=== PATIENT | male | born 1945 | race Caucasian/White ===

== ENCOUNTER 2016-12-01 12:42 | Day surgery (SDC) | payer OTHER, MEDICARE ==
--- NOTE | ~2016-12-01 | OP ---
Record Of Operation [facility] [address] [place]. [address] NAME: GOLDEN SHARIF : 41 STATUS : [facility]#: [id number] AGE: 71 ADM/REG DATE : 12/01/16 MR#: [id number] REPORT SERV DATE: 12/01/16 DICTATED BY: KAMILA SANCHEZ DATE: 12/01/16 REPORT STATUS : Draft TRANSCRIBED BY: MODL DATE: 12/01/16 DATE OF PROCEDURE: 12/01/2016 PREOPERATIVE DIAGNOSES: Gross hematuria, left ureteral stones. POSTOPERATIVE DIAGNOSES: Gross hematuria, left ureteral stones. PROCEDURE: Cystoscopy, left retrograde pyelogram, left rigid ureteroscopy, laser ablation and basket extraction of left ureteral stone, left flexible ureteropyeloscopy, laser ablation of left renal stones, placement of left ureteral stent, placement of Garcia catheter. SURGEON: Kamila Sanchez M.D. ANESTHESIA: General. SPECIMENS: Left ureteral stone for stone composition analysis. DRAINS: A 6 variable length double-J contour stent without a string, 22-Nicaraguan coude catheter to bag drainage to be removed in phase two recovery. ESTIMATED BLOOD LOSS: Less than 50 mL. CULTURES: None. COMPLICATIONS: We had great difficulty placing the stent. Upon the third try, a false passage was created by lifting a flap at the ureteral orifice. This was bypassed with the rigid ureteroscope and a stent was placed across the injury. DISPOSITION: Extubated to recovery room. HISTORY: This is a 71-year-old gentleman, who presented to my office yesterday with the above-stated problems who presents for the above-stated procedure. He is taking aspirin. PROCEDURE IN DETAIL: After consent was obtained, the patient was taken to the operating room and placed on the operative table in a supine position. General anesthetic was induced. The patient was then placed in a dorsal lithotomy position. His perineum was prepped and draped in usual sterile fashion. Examination under anesthesia revealed normal external genitalia. Cystourethroscopy was performed with a 30- and 70-degree lens. 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 His prostate gland was friable and easily bleeds, but was not bleeding upon insertion of the scope. He had no evidence of any tumor stones or foreign body seen in his bladder. He does had hematuria with efflux from his left ureteral orifice only. KUB on the table showed phleboliths in his left lower pelvis. No other abnormal calcifications were noted regarding his left collecting system. Left retrograde pyelogram was performed, which showed a flattening of the ureter over the vessels, otherwise normal caliber collecting system. We Record Of Operation [facility] [address] [place]. [address] NAME: GOLDEN SHARIF : 41 STATUS : [facility]#: [id number] AGE: 71 ADM/REG DATE : 12/01/16 MR#: [id number] REPORT SERV DATE: 12/01/16 DICTATED BY: KAMILA SANCHEZ DATE: 12/01/16 REPORT STATUS : Draft TRANSCRIBED BY: NOEL DATE: 12/01/16 had difficulty passing the wire over the vessels. We had to use a 0.038 angled Glidewire. We were then able to pass the wire up into the kidney. We then passed the open-ended over the angled Glidewire into the kidney, and the Glidewire was exchanged for the 0.038 Bentson wire. The open-ended was then removed. The 4 cm ureteral dilating balloon was used to dilate the ureteral orifice. The bladder was then drained. Scope and sheaths were removed. The safety wire was clamped to the drapes. Rigid ureteroscopy was performed up to the level of the vessels. This was where we encountered a ureteral stone. The 200 laser fiber was used to break this up into several small pieces. The filiform basket was used to remove one of these pieces, which was sent to Pathology for composition analysis. We then re-scoped the patient's ureter all the way up to the kidney. We could see the second stone had washed up into the kidney, but we could not engage this with the basket. We then backed down the ureter and another small piece of stone was noted. We were able to wash this using the basket down into the patient's bladder. No other significant stones or abnormalities were noted. At that time, the bladder was drained. The scope and sheath were removed. A Rey catheter was used to pass a second wire into the kidney. The safety wire was clamped to the drapes. The ureteral access sheath was passed over the working wire to the mid ureter. The inner core was removed. The flexible ureteroscope was passed over the working wire into the kidney and the working wire was removed. A retrograde pyelogram was performed, and all calices were evaluated. The stone was found in a mid pole calyx. A laser was used to break this up into very small pieces. We then evaluated all calices again. We found no significant stone fragments. We then backed down the ureter and found no significant abnormalities. The safety wire was backed through the cystoscope and the 6 variable length was passed over the wire into the kidney, but it would not curl appropriately in the kidney. We used the graspers to try to adjust this from the bladder standpoint, but it had a very long straight portion and then curled in what appeared to be the proximal ureter. We could not get this to just appropriately and ultimately had to remove the stent out the end of the urethral meatus and passed the wire back up the stent. The stent was removed and the wire was backed through the cystoscope. The open-ended was passed over the wire. A retrograde pyelogram was performed and wire was passed up into the kidney. The patient's prostate and bladder neck were bleeding some now from his aspirin use and manipulation of the cystoscope in this area throughout the case. This made it very hard to see the ureteral orifice while trying to pass the stent. Clot was forming in this dependent area. With passing the stent the second time, the wire was allowed to curl in the bladder, so the stent and wire had to be completely removed. We went to shoot a retrograde pyelogram. It was noted that a false passage and flap had been raised of the distal portion of the ureteral orifice. The rigid ureteroscope was then passed and a wire was directly passed through the rigid ureteroscope up the ureter and a retrograde pyelogram was performed through the rigid ureteroscope showing that we were in the ureter and the wire was passed up the ureter into the kidney. The rigid ureteroscope was removed. The safety wire was backed through the cystoscope and the contour stent was passed with a good curl seen in the renal pelvis and in the bladder. It was seen to be draining. The bladder was drained and then refilled. They were continued to be oozing at the bladder neck. So, it was decided at that time to leave a catheter at least until phase two to place pressure on the bladder neck and decrease the bleeding. A 22 Nicaraguan coude catheter was passed and 15 mL were placed in the balloon. This was seated at the bladder neck. The patient was then awakened from his anesthetic, extubated, and taken Record Of Operation [address] [place]. [address] NAME: GOLDEN SHARIF : 41 STATUS : [facility]#: [id number] AGE: 71 ADM/REG DATE : 12/01/16 MR#: [id number] REPORT SERV DATE: 12/01/16 DICTATED BY: KAMILA SANCHEZ DATE: 12/01/16 REPORT STATUS : Draft TRANSCRIBED BY: MODBaldo DATE: 12/01/16 to recovery room in good condition. Plan will be to have the catheter removed in phase two. He will return in three weeks for a KUB, a cystoscopy, and stent removal. All of his postoperative prescriptions were given to him at his office visit yesterday. CLARK/NOEL Kamila Sanchez M.D. / [id number] CC: Dorcas Bliss M.D.
[~2016-12-01 12:42] MED LIST: ASA5GR; CRESTOR40 MG PO; GLUCPH PO; L20 PO; LEVOTHYROXIN175 MCG PO; NEUR300 PO; NORV25 PO; PRILO PO; PROSCAR5 PO; TOPROL XL200 MG PO; UROXATRAL PO; VITD PO; ZOL100 PO
[2016-12-01 13:00] LABS: BASOPHILS 0.7 %; BASOPHILS ABSOLUTE 0.06 10/3/uL (0.0-0.16); EOSINOPHILS 1.2 %; EOSINOPHILS ABSOLUTE 0.11 10/3/uL (0.0-0.53); HEMATOCRIT 44.5 % (40.0-51.0); HEMOGLOBIN 14.8 g/dL (13.6-17.8); IMMATURE GRANULOCYTES 0.2 %; IMMATURE GRANULOCYTES ABSOLUTE 0.02 10/3/uL (0.0-0.11); LYMPHOCYTES 24.1 %; LYMPHOCYTES ABSOLUTE 2.12 10/3/uL (0.67-4.30); MEAN CORPUS HGB CONC 33.3 g/dL (32.0-36.0); MEAN CORPUSCULAR VOLUME 90.3 fL (80-100); MEAN PLATELET VOLUME 10.1 fL (9.2-13.0); MONOCYTES 5.9 %; MONOCYTES ABSOLUTE 0.52 10/3/uL (0.21-1.20); NEUTROPHILS 67.9 %; NEUTROPHILS ABSOLUTE 5.98 10/3/uL (2.02-8.40); PLATELET COUNT 269 10/3/uL (150-400); RBC DISTRIBUTION WIDTH 13.8 % (12.0-16.0); RED CELL COUNT 4.93 10/6/uL (4.7-6.1); WHITE BLOOD CELLS 8.8 10/3/uL (4.5-10.5)
[2016-12-01 13:01] LABS: MANUAL DIFF NO %
[2016-12-01 13:15] LABS: BUN (BLOOD UREA NITROGEN) 19 MG/DL (6-23); CALCIUM, SERUM 11.1 MG/DL (8.5-10.4); CHLORIDE, SERUM 107 MMOL/L (96-112); CO2 (CARBON DIOXIDE) 30 MMOL/L (24-34); CREATININE 1.01 MG/DL (0.70-1.30); GFR AFRICAN AMERICAN 85 ML/MIN (>=60); GFR NON AFRICAN AMERICAN 73 ML/MIN (>=60); GLUCOSE, SERUM 125 MG/DL (60-99); POTASSIUM, SERUM 4.3 MMOL/L (3.5-5.3); SODIUM, SERUM 141 MMOL/L (135-148)
[2016-12-01 13:27] LABS: ASCORBIC ACID (UR NOT ORDER) NEG (NEG); BILIRUBIN, URINE NEGATIVE (NEG); KETONE, URINE NEGATIVE (NEG); LEUKOCYTE ESTERASE(NOT OR TRACE (NEG); WBC (NOT ORDERED) (RFLEX) 5 (0-5)
[2016-12-06 16:48] LABS: STONE COMPOSITION TWO DNR (())
== END 2016-12-01 22:11 | disposition home or self-care (01) ==
LOC: SDC 12:42
PROVIDERS: Urology
PROC: 0T768DZ Dilation of Right Ureter with Intraluminal Device, Via Natural or Artificial Opening Endoscopic (ICD-10-PCS; 2016-12-01)
PROC: BT141ZZ Fluoroscopy of Kidneys, Ureters and Bladder using Low Osmolar Contrast (ICD-10-PCS; 2016-12-01)
PROC: 0TF38ZZ Fragmentation in Right Kidney Pelvis, Via Natural or Artificial Opening Endoscopic (ICD-10-PCS; principal; 2016-12-01 13:15)
DX: N20.2 Calculus of kidney with calculus of ureter (principal); N28.89 Other specified disorders of kidney and ureter; R31.0 Gross hematuria; N40.0 Benign prostatic hyperplasia without lower urinary tract symptoms; I10 Essential (primary) hypertension; E11.9 Type 2 diabetes mellitus without complications; K21.9 Gastro-esophageal reflux disease without esophagitis; F41.9 Anxiety disorder, unspecified; F43.10 Post-traumatic stress disorder, unspecified; Z95.810 Presence of automatic (implantable) cardiac defibrillator; Z88.8 Allergy status to other drugs, medicaments and biological substances; Z79.82 Long term (current) use of aspirin; Z79.84 Long term (current) use of oral hypoglycemic drugs; Z79.899 Other long term (current) drug therapy
CPT/HCPCS: 74420; 80048; 81001; 82365; 82962; 85025; 93005; A9270-GY; C1726; C1758; C1769; C1892; C1894; C2617; J1170; J2250; J2270; J2370; J2405; J2710; J3010; Q9967